=== PATIENT | female | born 1995 ===

== ENCOUNTER 2017-11-30 00:06 | Emergency (ER) | payer MEDICAID ==
[2017-11-30 00:19] VITALS: RESP 17; TEMP 98.4; O2SAT 98
--- NOTE | 2017-11-30 01:40 | ED PDOC ---
HPI: Chest Pain Time Seen by Provider: 11/30/17 01:12 Chief Complaint (Nursing): Chest Pain Chief Complaint (Provider): chest pain History Per: Patient History/Exam Limitations: no limitations Onset/Duration Of Symptoms: Hrs (3) Additional Complaint(s): 22 y/o female presents for evaluation of midsternal chest pain x 3 hours. Patient states she was at cheer practice and after doing exercises started feeling short of breath so she stopped and used breathing techniques and her inhaler which helped with her breathing. Patient states pain then started. Denies fever, headache, dizziness, extremity numbness/weakness, shortness of breath, palpitations, leg pain/swelling. No medications taken for relief thus far Past Medical History Reviewed: Historical Data, Nursing Documentation, Vital Signs Vital Signs: Last Vital Signs Temp 98.4 F 11/30/17 00:14 Pulse 98 H 11/30/17 00:14 Resp 17 11/30/17 00:14 BP 107/61 11/30/17 00:14 Pulse Ox 98 11/30/17 00:14 - Medical History PMH: Asthma Denies: Diabetes, Hepatitis, HIV, HTN, Seizures, Sexually Transmitted Disease - Surgical History Surgical History: Tonsillectomy - Family History Family History: States: Diabetes - Home Medications Home Medications: Ambulatory Orders Medication Instructions Recorded Albuterol HFA [Ventolin HFA 90 2 puff INH PRN PRN 06/20/16 mcg/actuation (8 g)] Beclomethasone Dipropionate [Qvar 2 puff INH PRN PRN 06/20/16 80 mcg] Prednisone 50 mg PO DAILY #4 tablet 06/20/16 Naproxen [Naprosyn] 500 mg PO Q12 PRN #20 tablet 11/30/17 - Allergies Allergies/Adverse Reactions: Allergies Allergy/AdvReac Type Severity Reaction Status Date / Time mushroom Allergy ANAPHYLAXIS Verified 11/30/17 00:19 Penicillins AdvReac SWELLING Verified 11/30/17 00:19 Review of Systems ROS Statement: Except As Marked, All Systems Reviewed And Found Negative Cardiovascular: Positive for: Chest Pain Physical Exam - Reviewed Nursing Documentation Reviewed: Yes Vital Signs Reviewed: Yes - Physical Exam Appears: Positive for: Well, Non-toxic, No Acute Distress Head Exam: Positive for: ATRAUMATIC, NORMAL INSPECTION, NORMOCEPHALIC Skin: Positive for: Normal Color Eye Exam: Positive for: Normal appearance ENT: Positive for: Normal ENT Inspection Cardiovascular/Chest: Positive for: Regular Rate, Rhythm. Negative for: Chest Non Tender (tender to palpate midsternal chest) Respiratory: Positive for: Normal Breath Sounds Gastrointestinal/Abdominal: Positive for: Normal Exam Back: Positive for: Normal Inspection Extremity: Positive for: Normal ROM Neurologic/Psych: Positive for: Alert, Oriented (x3) - Laboratory Results Result Diagrams: 11/30/17 02:09 11/30/17 02:09 - ECG ECG: Positive for: Viewed By Me (reviewed by ED attending) ECG Rhythm: Positive for: Sinus Rhythm O2 Sat by Pulse Oximetry: 98 - Progress ED Course And Treament: labs, ekg, chest xray, IV toradol On re-eval, patient states pain improving Patient educated on findings, discharged with rx Naproxen Advised follow up PMD 2-3 days Return precautions given Patient demonstrates full understanding of discharge instructions Patient requires no further intervention in the ED and is stable for discharge at this time Disposition - Clinical Impression Clinical Impression: Atypical chest pain - Patient ED Disposition Is Patient to be Admitted: No Counseled Patient/Family Regarding: Studies Performed, Diagnosis, Need For Followup, Rx Given - Disposition Disposition: Routine/Home Disposition Time: 03:00 Condition: IMPROVED Prescriptions: Naproxen [Naprosyn] 500 mg PO Q12 PRN #20 tablet PRN Reason: Pain, Moderate (4-7) Instructions: Chest Pain That Is Not Caused by the Heart (DC) Forms: [email or web address] (German)
[2017-11-30 02:12] LABS: BASO % 0.4 % (0.0-2.0); EOS # 0.1 K/uL (0.0-0.7); EOS % 2.6 % (0.0-4.0); HEMOGLOBIN 12.3 g/dL (12.0-16.0); LYMPH # 1.9 K/uL (1.0-4.3); LYMPH % 36.9 % (20.0-40.0); MEAN CELL VOLUME 84.2 fl (81.0-99.0); MEAN CORPUSCULAR HEMOGLOBIN 27.7 pg (27.0-31.0); MEAN CORPUSCULAR HGB CONC 32.9 g/dL (33.0-37.0); MEAN PLATELET VOLUME 7.3 fl (7.2-11.7); MONO # 0.4 K/uL (0.0-0.8); NEUT # 2.6 K/uL (1.8-7.0); NEUT % 52.1 % (50.0-75.0); RBC 4.45 Mil/uL (3.80-5.20); RED CELL DISTRIBUTION WIDTH 14.3 % (11.5-14.5); WHITE BLOOD COUNT 5.1 K/uL (4.8-10.8)
[2017-11-30 02:21] LABS: ALB/GLOB RATIO 1.4 (1.0-2.1); ALBUMIN 4.4 g/dL (3.5-5.0); ALT/SGPT 33 U/L (9-52); AST/SGOT 24 U/L (14-36); BLOOD UREA NITROGEN 12 mg/dl (7-17); CALCIUM 9.7 mg/dL (8.4-10.2); GFR NON-AFRICAN AMERICAN > 60
[2017-11-30 06:49] VITALS: BP 128/66; PULSE 72
--- NOTE | 2017-11-30 12:04 | RAD ---
Date of service: 11/30/2017 HISTORY: chest pain COMPARISON: 06/20/2016 TECHNIQUE: Chest PA and lateral FINDINGS: LUNGS: No active pulmonary disease. PLEURA: No significant pleural effusion identified. No pneumothorax apparent. CARDIOVASCULAR: Normal. OSSEOUS STRUCTURES: No significant abnormalities. VISUALIZED UPPER ABDOMEN: Normal. OTHER FINDINGS: None. IMPRESSION: No active disease.
== END 2017-11-30 03:10 | disposition home or self-care (01) ==
LOC: H.ER 00:06
DX: R07.89 Other chest pain (principal); J45.909 Unspecified asthma, uncomplicated; Z88.0 Allergy status to penicillin

== ENCOUNTER 2018-01-21 16:04 | Emergency (ER) | payer MEDICAID ==
[2018-01-21] MEDS ORDERED: Albuterol-Ipratrop 3 mg / 0.5 (3 ml) UD IH STA (16:31)
--- NOTE | 2018-01-21 16:37 | ED PDOC ---
HPI: SOB/CHF/COPD Time Seen by Provider: 01/21/18 16:24 Chief Complaint (Nursing): Respiratory Distress Chief Complaint (Provider): shortness of breath History Per: Patient History/Exam Limitations: no limitations Onset/Duration Of Symptoms: Days (x1 month) Current Symptoms Are (Timing): Still Present Associated Symptoms: denies: Fever, Chills Additional Complaint(s): Jaky Atkins is a 22 year old female, with a past medical history of asthma, who presents to the emergency department complaining of shortness of breath, wheezing and nonproductive cough onset for x1 month. Patient reports having cats at home and is allergic to them. She has been using an inhaler with no improvements. She denies any fever, chills or other medical complaints. PMD: None provided. Past Medical History Reviewed: Historical Data, Nursing Documentation, Vital Signs Vital Signs: Last Vital Signs Temp 98.4 F 01/21/18 16:18 Pulse 105 H 01/21/18 16:18 Resp 18 01/21/18 16:18 BP 127/72 01/21/18 16:18 Pulse Ox 98 01/21/18 16:18 - Medical History PMH: Asthma Denies: Diabetes, Hepatitis, HIV, HTN, Seizures, Sexually Transmitted Disease - Surgical History Surgical History: Tonsillectomy - Family History Family History: States: Diabetes - Social History Current smoker - smoking cessation education provided: No Alcohol: None Drugs: Denies - Home Medications Home Medications: Ambulatory Orders Medication Instructions Recorded Albuterol HFA [Ventolin HFA 90 2 puff INH PRN PRN 06/20/16 mcg/actuation (8 g)] Beclomethasone Dipropionate [Qvar 2 puff INH PRN PRN 06/20/16 80 mcg] Prednisone 50 mg PO DAILY #4 tablet 06/20/16 Naproxen [Naprosyn] 500 mg PO Q12 PRN #20 tablet 11/30/17 - Allergies Allergies/Adverse Reactions: Allergies Allergy/AdvReac Type Severity Reaction Status Date / Time mushroom Allergy ANAPHYLAXIS Verified 11/30/17 00:19 Penicillins AdvReac SWELLING Verified 11/30/17 00:19 Review of Systems ROS Statement: Except As Marked, All Systems Reviewed And Found Negative Constitutional: Negative for: Fever, Chills Respiratory: Positive for: Cough (nonproductive), Shortness of Breath, Wheezing Physical Exam - Reviewed Nursing Documentation Reviewed: Yes Vital Signs Reviewed: Yes - Physical Exam Appears: Positive for: No Acute Distress Head Exam: Positive for: ATRAUMATIC, NORMAL INSPECTION, NORMOCEPHALIC Skin: Positive for: Normal Color, Warm, Dry Eye Exam: Positive for: Normal appearance, EOMI, PERRL ENT: Positive for: Normal ENT Inspection Neck: Positive for: Normal, Painless ROM Cardiovascular/Chest: Positive for: Regular Rate, Rhythm. Negative for: Murmur Respiratory: Positive for: Rhonchi (scattered), Wheezing (mild expiratory). Negative for: Respiratory Distress Gastrointestinal/Abdominal: Positive for: Normal Exam, Soft. Negative for: Tenderness, Guarding, Rebound Back: Positive for: Normal Inspection. Negative for: L CVA Tenderness, R CVA Tenderness, Vertebral Tenderness Extremity: Positive for: Normal ROM (upper and lower extremities). Negative for: Deformity, Swelling Neurologic/Psych: Positive for: Alert, Oriented. Negative for: Motor/Sensory Deficits - ECG O2 Sat by Pulse Oximetry: 98 (RA) Pulse Ox Interpretation: Normal Medical Decision Making Medical Decision Making: Time: 16:24 Initial Plan: --Chest two views (PA/LAT) [RAD] --Duoneb 3 ml INH --prednisone 50 mg PO --Reevaluation ----- Scribe Attestation: Documented by Braulio Alcala, acting as a scribe for Parker Flanagan MD. Provider Scribe Attestation: All medical record entries made by the Scribe were at my direction and personally dictated by me. I have reviewed the chart and agree that the record accurately reflects my personal performance of the history, physical exam, medical decision making, and the department course for this patient. I have also personally directed, reviewed, and agree with the discharge instructions and disposition. Disposition - Clinical Impression Clinical Impression: Asthma - Patient ED Disposition Is Patient to be Admitted: Transfer of Care - Disposition Disposition: Transfer of Care Disposition Time: 16:58 Condition: FAIR Forms: [employer] (Micronesian) Patient Signed Over To: Suzan Wallace
--- NOTE | 2018-01-21 17:08 | ED PDOC ---
- ECG O2 Sat by Pulse Oximetry: 98 (RA) Pulse Ox Interpretation: Normal - Progress Re-evaluation Time: 17:48 Condition: Improving,but remains with symptoms (Additional Duonebs ordered.) Medical Decision Making Medical Decision Makin Patient signed out to me by Dr. Flanagan pending CXR and reassessment. Accession No. : [id number] Patient Name / ID : MICHELLE OLIVERA / [id number] Exam Date : 01/21/2018 17:07:03 ( Approved ) Study Comment : Sex / Age : F / 22Y Creator : Dictator : Cosmo Schwarz MD Central Office Inspector : Elevator Operator Service : Cosmo Schwarz MD Approver2 : Report Date : My Comment : Date of service: 01/21/2018 HISTORY: SOB COMPARISON: 11/30/2017 TECHNIQUE: Chest PA and lateral FINDINGS: LUNGS: No active pulmonary disease. PLEURA: No significant pleural effusion identified. No pneumothorax apparent. CARDIOVASCULAR: No aortic atherosclerotic calcification present. Normal cardiac size. No pulmonary vascular congestion. OSSEOUS STRUCTURES: No significant abnormalities. VISUALIZED UPPER ABDOMEN: Normal. OTHER FINDINGS: None. IMPRESSION: No active disease. No significant interval change compared to the prior examination(s). 19:00 Pt feels better, speaking full sentences, wheezing resolved, wants to go home. Scribe Attestation: Documented by Mala Moreno, acting as a scribe for Suzan Wallace MD. Provider Scribe Attestation: All medical record entries made by the Scribe were at my direction and personally dictated by me. I have reviewed the chart and agree that the record accurately reflects my personal performance of the history, physical exam, medical decision making, and the department course for this patient. I have also personally directed, reviewed, and agree with the discharge instructions and disposition. Disposition - Clinical Impression Clinical Impression: Asthma - POA Present On Arrival: None - Disposition Referrals: [facility] [Outside] Disposition: Routine/Home Disposition Time: 19:00 Condition: IMPROVED Prescriptions: Albuterol HFA [Ventolin HFA 90 mcg/actuation (8 g)] 2 puff IH [id number] PRN #1 bottle PRN Reason: Shortness Of Breath Albuterol 0.083% [Albuterol 0.083% Inhal [place] (2.5 mg/3 ml) UD] 3 ml IH Q6H PRN #30 neb PRN Reason: Shortness Of Breath Nebulizer [Compact Compressor Nebulizer] 1 dev XX PRN PRN #1 dev PRN Reason: Shortness Of Breath Prednisone 50 mg PO DAILY #4 tab Instructions: Asthma in Adults Forms: [employer] (Nauruan)
[2018-01-21] MEDS ORDERED: Albuterol-Ipratrop 3 mg / 0.5 (3 ml) UD ONE ×2 (17:17→17:56)
[2018-01-21] MEDS ORDERED: Albuterol-Ipratrop 3 mg / 0.5 (3 ml) UD INH STA (17:49)
[2018-01-21] MEDS: Albuterol-Ipratrop 3 mg / 0.5 (3 ml) UD INH STA ×2 (17:55→17:56)
--- NOTE | 2018-01-21 18:35 | RAD ---
Date of service: 01/21/2018 HISTORY: SOB COMPARISON: 11/30/2017 TECHNIQUE: Chest PA and lateral FINDINGS: LUNGS: No active pulmonary disease. PLEURA: No significant pleural effusion identified. No pneumothorax apparent. CARDIOVASCULAR: No aortic atherosclerotic calcification present. Normal cardiac size. No pulmonary vascular congestion. OSSEOUS STRUCTURES: No significant abnormalities. VISUALIZED UPPER ABDOMEN: Normal. OTHER FINDINGS: None. IMPRESSION: No active disease. No significant interval change compared to the prior examination(s).
[2018-01-21 18:39] VITALS: BP 140/69; PULSE 94; RESP 18; TEMP 97.9; O2SAT 98
== END 2018-01-21 19:00 | disposition home or self-care (01) ==
LOC: H.ER 16:04
DX: J45.909 Unspecified asthma, uncomplicated (principal)